=== PATIENT | male | born 1945 | race Caucasian/White ===

== ENCOUNTER → 2016-03-30 | Outpatient (CLI) | payer MEDICARE ==
[2016-03-30 14:30] LABS: Calcium 10.1 mg/dL (8.4-10.2); Potassium 5.8 mmol/L (3.5-5.1)
== END | disposition home or self-care (01) ==
LOC: LABWHC1 12:31
PROVIDERS: ATTEND Internal Medicine Nephrology
DX: N18.3 Chronic kidney disease, stage 3 (moderate) (principal)
CPT/HCPCS: 36415; 80048

== ENCOUNTER 2016-04-02 09:56 | Day surgery (SDC) | payer MEDICARE ==
[2016-04-02 10:52] LABS: Mean Platelet Volume 7.7
[2016-04-02 10:53] LABS: INR 1.5 (<1.1); Prothrombin Time 14.8 sec (9.0-12.0)
[2016-04-02 11:22] VITALS: RESP 18; TEMP 98.2
[2016-04-02] MEDS: ALBUMIN HUMAN 25% 50 ML in EMPTY BAG 1 BAG IVPB SCH ×2 (12:00→12:23)
[2016-04-02 12:57] VITALS: BP 121/76; PULSE 76
--- NOTE | 2016-04-02 14:45 | US ---
EXAMINATION TYPE: US paracentesis abd w/image DATE OF EXAM: 04/02/2016 12:28 PM COMPARISON: NONE HISTORY: Ascites. PROCEDURE: Maximal barrier technique was utilized. The skin overlying a suitable pocket of fluid was localized with ultrasound and the overlying skin was prepped and draped. Ultrasound was utilized with sterile technique. Lidocaine was used for local anesthesia and a skin alisa made with a scalpel. Catheter was advanced under direct ultrasound guidance into a suitable pocket of fluid and approximately 3.3 liter s of serous fluid were removed. Catheter was withdrawn and hemostasis achieved. There is no immedia te complication; the patient is discharged in stable condition. IMPRESSION: STATUS POST ULTRASOUND GUIDED PARACENTESIS FOR PALLIATION OF ASCITES. THIS PROCEDURE WA S PERFORMED BY THE UNDERSIGNED.
== END 2016-04-02 13:01 | disposition home or self-care (01) ==
LOC: RADPROMAIN 09:56
PROVIDERS: ATTEND Internal Medicine Critical Care Medicine
DX: R18.8 Other ascites (principal); Z88.8 Allergy status to other drugs, medicaments and biological substances
CPT/HCPCS: 82565; 85049; 85610; 96365; 36415; 49083; P9047

== ENCOUNTER 2016-04-09 12:59 | Day surgery (SDC) | payer MEDICARE ==
[2016-04-09 14:12] LABS: Mean Platelet Volume 7.5
[2016-04-09 14:21] VITALS: TEMP 98
[2016-04-09 14:33] LABS: INR 1.5 (<1.1); Prothrombin Time 14.9 sec (9.0-12.0)
[2016-04-09 15:30] VITALS: BP 88/66; PULSE 117; RESP 20
--- NOTE | 2016-04-09 16:15 | US ---
Discontinued paracentesis, limited abdomen ultrasound HISTORY: Ascites Real-time ultrasound shows ascites within the pelvis. Following evaluation of patient's blood pressur e is elected to postpone the procedure. Discussion undertaken with referring clinician. IMPRESSION: Discontinued paracentesis at this time. Ascites.
--- NOTE | 2016-04-09 16:20 | US ---
EXAMINATION TYPE: US guide needle placement DATE OF EXAM: 04/09/2016 1:55 PM HISTORY: Needs IV access for hypotension therapy. PROCEDURE: Maximal barrier technique utilized. The skin overlying the basilic vein was localized with ultrasoun d and the vein was noted to be compressible and patent by ultrasound and ultrasound image was obtaine d and submitted on patient's chart. Under direct ultrasound guidance a 20-gauge Angiocath was advanc ed into the vein and fixed in place. Catheter was aspirated and flushed with sterile saline. Hemost asis achieved. Catheter fixed in place. No immediate complication. IMPRESSION: Ultrasound-guided venipuncture, this procedure performed by the undersigned.
== END 2016-04-09 15:30 | disposition home or self-care (01) ==
LOC: RADPROMAIN 12:59
PROVIDERS: ATTEND Internal Medicine Critical Care Medicine
DX: R18.8 Other ascites (principal); R06.02 Shortness of breath; I95.9 Hypotension, unspecified; Z53.8 Procedure and treatment not carried out for other reasons
CPT/HCPCS: 36415; 76705; 76942; 82565; 85049; 85610

== ENCOUNTER → 2016-04-14 | Outpatient (CLI) | payer MEDICARE ==
[2016-04-14 08:37] LABS: Calcium 9.3 mg/dL (8.4-10.2); Potassium 5.4 mmol/L (3.5-5.1)
== END | disposition home or self-care (01) ==
LOC: LABWHC1 07:43
PROVIDERS: ATTEND Internal Medicine Interventional Cardiology
DX: N18.9 Chronic kidney disease, unspecified (principal)
CPT/HCPCS: 36415; 80048

== ENCOUNTER → 2016-05-10 | Outpatient (CLI) | payer MEDICARE ==
[2016-05-10 11:27] LABS: Calcium 8.1 mg/dL (8.4-10.2); Potassium 4.9 mmol/L (3.5-5.1)
== END | disposition home or self-care (01) ==
LOC: LABWHC1 10:30
PROVIDERS: ATTEND Internal Medicine Nephrology
DX: Z94.0 Kidney transplant status (principal); D64.9 Anemia, unspecified
CPT/HCPCS: 36415; 80048; 80197

== ENCOUNTER → 2016-05-14 | Outpatient (CLI) | payer MEDICARE ==
[2016-05-14 11:09] LABS: Potassium 4.7 mmol/L (3.5-5.1)
== END | disposition home or self-care (01) ==
LOC: LABWHC1 10:19
PROVIDERS: ATTEND Nurse Practitioner Family
DX: N18.4 Chronic kidney disease, stage 4 (severe) (principal)
CPT/HCPCS: 36415; 80048

== ENCOUNTER → 2016-05-19 | Outpatient (CLI) | payer MEDICARE ==
[2016-05-19 11:14] LABS: Calcium 7.8 mg/dL (8.4-10.2); Potassium 5.1 mmol/L (3.5-5.1)
== END | disposition home or self-care (01) ==
LOC: LABWHC1 10:08
PROVIDERS: ATTEND Nurse Practitioner Family
DX: N18.4 Chronic kidney disease, stage 4 (severe) (principal)
CPT/HCPCS: 36415; 80048

== ENCOUNTER → 2016-05-25 | Outpatient (CLI) | payer MEDICARE ==
[2016-05-25 11:48] LABS: CH 32.3; CHCM 32.4; HCT 29.6 % (39.0-53.0); HDW 3.32; HGB 9.8 gm/dL (13.0-17.5); Hypochromasia Slight; MCH 33.3 pg (25.0-35.0); MCHC 33.1 g/dL (31.0-37.0); MCV 100.7 fL (80.0-100.0); Macrocytosis Slight; Mean Platelet Volume 8.4; RBC 2.94 m/uL (4.30-5.90); RDW 15.4 % (11.5-15.5); WBC 8.3 k/uL (3.8-10.6)
[2016-05-25 12:04] LABS: Calcium 7.3 mg/dL (8.4-10.2); Potassium 5.1 mmol/L (3.5-5.1)
[2016-05-25 12:13] LABS: % Iron Saturation 18.9 % (20-50)
== END | disposition home or self-care (01) ==
LOC: LABWHC1 11:20
PROVIDERS: ATTEND Nurse Practitioner Family
DX: N18.4 Chronic kidney disease, stage 4 (severe) (principal)
CPT/HCPCS: 36415; 80048; 80197; 82728; 83540; 83550; 83970; 85027

== ENCOUNTER 2016-06-11 13:13 | Day surgery (SDC) | payer MEDICARE ==
[2016-06-11 13:45] LABS: Mean Platelet Volume 7.7
[2016-06-11 13:56] LABS: INR 1.6 (<1.1); Prothrombin Time 15.9 sec (9.0-12.0)
[2016-06-11 14:15] VITALS: RESP 20; TEMP 97.5
[2016-06-11 14:52] VITALS: BP 122/61; PULSE 67
--- NOTE | 2016-06-11 15:03 | US ---
EXAMINATION TYPE: US paracentesis abd w/image DATE OF EXAM: 06/11/2016 2:51 PM COMPARISON: NONE HISTORY: Ascites. PROCEDURE: Maximal barrier technique was utilized. The skin overlying a suitable pocket of fluid was localized with ultrasound and the overlying skin was prepped and draped. Ultrasound was utilized with sterile technique. Lidocaine was used for local anesthesia and a skin alisa made with a scalpel. Catheter was advanced under direct ultrasound guidance into a suitable pocket of fluid and approximately 1.75 lite rs of serous fluid were removed. Catheter was withdrawn and hemostasis achieved. There is no immedi ate complication; the patient is discharged in stable condition. IMPRESSION: STATUS POST ULTRASOUND GUIDED PARACENTESIS FOR PALLIATION OF ASCITES. THIS PROCEDURE WA S PERFORMED BY THE UNDERSIGNED.
== END 2016-06-11 15:02 | disposition home or self-care (01) ==
LOC: RADPROMAIN 13:13
PROVIDERS: ATTEND Internal Medicine Critical Care Medicine
DX: R18.8 Other ascites (principal); Z88.8 Allergy status to other drugs, medicaments and biological substances
CPT/HCPCS: 49083; 85049; 85610

== ENCOUNTER → 2016-06-21 | Outpatient (CLI) | payer MEDICARE ==
[2016-06-21 10:21] LABS: CH 31.7; HDW 3.24; HGB 8.9 gm/dL (13.0-17.5); Hypochromasia Moderate; MCH 31.4 pg (25.0-35.0); MCHC 30.5 g/dL (31.0-37.0); Macrocytosis Slight; Mean Platelet Volume 7.3; RBC 2.82 m/uL (4.30-5.90); RDW 14.8 % (11.5-15.5); WBC 7.1 k/uL (3.8-10.6)
== END | disposition home or self-care (01) ==
LOC: LABWHC1 09:30
PROVIDERS: ATTEND Nurse Practitioner Family
DX: N18.4 Chronic kidney disease, stage 4 (severe) (principal)
CPT/HCPCS: 36415; 80197; 82306; 82728; 83540; 83550; 83970; 85027

== ENCOUNTER → 2016-07-28 | Outpatient (CLI) | payer MEDICARE ==
[2016-07-28 11:21] LABS: CH 31.3; CHCM 30.7; HCT 32.3 % (39.0-53.0); HGB 9.6 gm/dL (13.0-17.5); Hypochromasia Marked; MCH 30.6 pg (25.0-35.0); MCHC 29.8 g/dL (31.0-37.0); MCV 102.4 fL (80.0-100.0); Macrocytosis Slight; Mean Platelet Volume 7.3; RBC 3.15 m/uL (4.30-5.90); RDW 14.2 % (11.5-15.5); WBC 7.4 k/uL (3.8-10.6)
[2016-07-28 11:37] LABS: Creatinine,Urine Random 83.8 mg/dL
[2016-07-28 11:44] LABS: Calcium 7.9 mg/dL (8.4-10.2); Potassium 4.9 mmol/L (3.5-5.1)
[2016-07-28 12:24] LABS: Hemoglobin A1C 5.2 % (4.2-6.1)
[2016-07-28 13:54] LABS: % Iron Saturation 13.6 % (20-50)
== END | disposition home or self-care (01) ==
LOC: LABWHC1 10:17
PROVIDERS: ATTEND Nurse Practitioner Family
DX: N18.3 Chronic kidney disease, stage 3 (moderate) (principal); E21.3 Hyperparathyroidism, unspecified; D64.9 Anemia, unspecified; E55.9 Vitamin D deficiency, unspecified; R80.9 Proteinuria, unspecified; Z94.0 Kidney transplant status
CPT/HCPCS: 36415; 80048; 80061; 80197; 82306; 82570; 82728; 83036; 83540; 83550; 83970; 84156; 85027

== ENCOUNTER 2016-09-01 12:31 | Day surgery (SDC) | payer MEDICARE ==
[2016-09-01 13:03] LABS: Mean Platelet Volume 8.5
[2016-09-01 13:08] LABS: INR 1.5 (<1.1); Prothrombin Time 14.4 sec (9.0-12.0)
[2016-09-01 13:58] VITALS: TEMP 97.5
[2016-09-01 15:10] VITALS: RESP 18
[2016-09-01 15:13] VITALS: BP 109/64; PULSE 56
--- NOTE | 2016-09-01 15:19 | US ---
EXAMINATION TYPE: US paracentesis abd w/image DATE OF EXAM: 09/01/2016 CLINICAL HISTORY: Ascites The procedure was discussed with the patient. The risks, complications, benefits, and alternatives we re discussed and any questions were answered. Informed consent was obtained. The patient was placed s upine on the ultrasound table and prepped and draped in the usual sterile fashion. All elements of maximal barrier technique were utilized. Under ultrasound guidance, access into the right lower quadrant was obtained, via the paracentesis catheter system and direct ultrasound guidanc e. Approximately 3.1 liters of straw-colored fluid was removed. The patient was stable throughout the pr ocedure and remained stable upon discharge from Department of Radiology. IMPRESSION: Successful therapeutic paracentesis under ultrasound guidance.
== END 2016-09-01 15:00 | disposition home or self-care (01) ==
LOC: RADPROMAIN 12:31
PROVIDERS: ATTEND Internal Medicine Critical Care Medicine
DX: R18.8 Other ascites (principal); R06.02 Shortness of breath
CPT/HCPCS: 36415; 49083; 85049; 85610

== ENCOUNTER 2016-09-27 10:00 | Day surgery (SDC) | payer MEDICARE ==
[2016-09-27 10:58] LABS: INR 1.5 (<1.1); Prothrombin Time 14.2 sec (9.0-12.0)
[2016-09-27 11:29] VITALS: RESP 18; TEMP 97.6
[2016-09-27 13:11] VITALS: PULSE 66
[2016-09-27 13:21] VITALS: BP 110/67
--- NOTE | 2016-09-27 13:27 | US ---
EXAMINATION TYPE: US paracentesis abd w/image DATE OF EXAM: 09/27/2016 COMPARISON: NONE HISTORY: Ascites. PROCEDURE: Maximal barrier technique was utilized. The skin overlying a suitable pocket of fluid was localized with ultrasound and the overlying skin was prepped and draped. Ultrasound was utilized with sterile technique. Lidocaine was used for local anesthesia and a skin alisa made with a scalpel. Catheter was advanced under direct ultrasound guidance into a suitable pocket of fluid and approximately 3.9 liter s of serous sanguinous fluid were removed. Catheter was withdrawn and hemostasis achieved. There is no immediate complication; the patient is discharged in stable condition. IMPRESSION: STATUS POST ULTRASOUND GUIDED PARACENTESIS FOR PALLIATION OF ASCITES. THIS PROCEDURE WA S PERFORMED BY THE UNDERSIGNED.
== END 2016-09-27 13:10 | disposition home or self-care (01) ==
LOC: RADPROMAIN 10:00
PROVIDERS: ATTEND Internal Medicine Critical Care Medicine
DX: R18.8 Other ascites (principal); Z88.8 Allergy status to other drugs, medicaments and biological substances
CPT/HCPCS: 36415; 49083; 85049; 85610

== ENCOUNTER 2016-10-14 12:31 | Day surgery (SDC) | payer MEDICARE ==
[2016-10-14 13:19] VITALS: TEMP 97.9
[2016-10-14 13:21] LABS: Mean Platelet Volume 7.6
[2016-10-14 13:22] LABS: INR 1.5 (<1.2)
[2016-10-14 13:23] LABS: Prothrombin Time 14.7 sec (9.0-12.0)
[2016-10-14 13:58] VITALS: RESP 14
[2016-10-14 14:49] VITALS: BP 92/66; PULSE 116
--- NOTE | 2016-10-14 15:01 | US ---
EXAMINATION TYPE: US paracentesis abd w/image DATE OF EXAM: 10/14/2016 COMPARISON: NONE HISTORY: Ascites. PROCEDURE: Maximal barrier technique was utilized. The skin overlying a suitable pocket of fluid was localized with ultrasound and the overlying skin was prepped and draped. Ultrasound was utilized with sterile technique. Lidocaine was used for local anesthesia and a skin alisa made with a scalpel. Catheter was advanced under direct ultrasound guidance into a suitable pocket of fluid and approximately 4.3 liter s of serous fluid were removed. Catheter was withdrawn and hemostasis achieved. There is no immedia te complication; the patient is discharged in stable condition. IMPRESSION: STATUS POST ULTRASOUND GUIDED PARACENTESIS FOR PALLIATION OF ASCITES. THIS PROCEDURE WA S PERFORMED BY THE UNDERSIGNED.
== END 2016-10-14 15:03 | disposition home or self-care (01) ==
LOC: RADPROMAIN 12:31
PROVIDERS: ATTEND Internal Medicine Critical Care Medicine
DX: R18.8 Other ascites (principal); Z88.8 Allergy status to other drugs, medicaments and biological substances
CPT/HCPCS: 49083; 85049; 85610

== ENCOUNTER 2016-10-25 12:00 | Day surgery (SDC) | payer MEDICARE ==
[2016-10-25 13:35] VITALS: TEMP 97.6
[2016-10-25 14:09] LABS: Mean Platelet Volume 8.4
[2016-10-25 14:13] LABS: INR 1.5 (<1.2); Prothrombin Time 14.3 sec (9.0-12.0)
[2016-10-25 16:13] VITALS: BP 92/65; PULSE 98; RESP 18
--- NOTE | 2016-10-25 16:59 | US ---
EXAMINATION TYPE: US paracentesis abd w/image DATE OF EXAM: 10/25/2016 COMPARISON: NONE HISTORY: Ascites. PROCEDURE: Maximal barrier technique was utilized. The skin overlying a suitable pocket of fluid was localized with ultrasound and the overlying skin was prepped and draped. Ultrasound was utilized with sterile technique. Lidocaine was used for local anesthesia and a skin alisa made with a scalpel. Catheter was advanced under direct ultrasound guidance into a suitable pocket of fluid and approximately 3.5 liter s of serous fluid were removed. Catheter was withdrawn and hemostasis achieved. There is no immedia te complication; the patient is discharged in stable condition. IMPRESSION: STATUS POST ULTRASOUND GUIDED PARACENTESIS FOR PALLIATION OF ASCITES. THIS PROCEDURE WA S PERFORMED BY THE UNDERSIGNED.
== END 2016-10-25 16:05 | disposition home or self-care (01) ==
LOC: RADPROMAIN 12:00
PROVIDERS: ATTEND Internal Medicine Critical Care Medicine
DX: R18.8 Other ascites (principal); R06.02 Shortness of breath
CPT/HCPCS: 36415; 49083; 85049; 85610

== ENCOUNTER 2016-10-29 11:52 | Day surgery (SDC) | payer MEDICARE ==
[2016-10-29 14:19] VITALS: BP 96/61; PULSE 102; RESP 20; TEMP 97.8
--- NOTE | 2016-10-29 15:28 | US ---
Discontinued thoracentesis HISTORY: Pleural effusion Correlation to plain film 10/27/2016 Real-time sonography shows organized effusion. No free fluid evident. impression: Discontinued thoracentesis. Organized pleural effusion.
== END 2016-10-29 13:00 | disposition home or self-care (01) ==
LOC: RADPROMAIN 11:52
PROVIDERS: ATTEND Internal Medicine Critical Care Medicine
DX: J90 Pleural effusion, not elsewhere classified (principal); Z53.8 Procedure and treatment not carried out for other reasons
CPT/HCPCS: 76604

== ENCOUNTER 2016-11-05 11:58 | Day surgery (SDC) | payer MEDICARE ==
[2016-11-05 12:44] VITALS: RESP 14; TEMP 97.8
[2016-11-05 12:50] LABS: Mean Platelet Volume 7.3
[2016-11-05 13:24] LABS: INR 1.5 (<1.2); Prothrombin Time 14.7 sec (9.0-12.0)
[2016-11-05 14:44] VITALS: BP 90/67; PULSE 123
--- NOTE | 2016-11-05 14:53 | US ---
EXAMINATION TYPE: US paracentesis abd w/image DATE OF EXAM: 11/05/2016 COMPARISON: NONE HISTORY: Ascites. PROCEDURE: Maximal barrier technique was utilized. The skin overlying a suitable pocket of fluid was localized with ultrasound and the overlying skin was prepped and draped. Ultrasound was utilized with sterile technique. Lidocaine was used for local anesthesia and a skin alisa made with a scalpel. Catheter was advanced under direct ultrasound guidance into a suitable pocket of fluid and approximately 4.4 liter s of serous fluid were removed. Catheter was withdrawn and hemostasis achieved. There is no immedia te complication; the patient is discharged in stable condition. IMPRESSION: STATUS POST ULTRASOUND GUIDED PARACENTESIS FOR PALLIATION OF ASCITES. THIS PROCEDURE WA S PERFORMED BY THE UNDERSIGNED.
== END 2016-11-05 15:06 | disposition home or self-care (01) ==
LOC: RADPROMAIN 11:58
PROVIDERS: ATTEND Internal Medicine Critical Care Medicine
DX: R18.8 Other ascites (principal); R06.02 Shortness of breath
CPT/HCPCS: 49083; 85049; 85610

== ENCOUNTER 2016-11-15 11:49 | Day surgery (SDC) | payer MEDICARE ==
[2016-11-15 12:21] VITALS: TEMP 97.7
[2016-11-15 12:32] LABS: Mean Platelet Volume 8.2
[2016-11-15 12:45] LABS: INR 1.4 (<1.2); Prothrombin Time 13.6 sec (9.0-12.0)
[2016-11-15 13:49] VITALS: RESP 18
--- NOTE | 2016-11-15 14:55 | US ---
Therapeutic paracentesis. DATE OF EXAM: 11/15/2016 CLINICAL HISTORY: Ascites The procedure was discussed with the patient. The risks, complications, benefits, and alternatives we re discussed and any questions were answered. Informed consent was obtained. The patient was placed s upine on the ultrasound table and prepped and draped in the usual sterile fashion. All elements of maximal barrier technique were utilized. Under ultrasound guidance, access into the left lower quadrant was obtained, via the paracentesis catheter system and direct ultrasound guidance . Approximately 3.7 liters of straw-colored fluid was removed. The patient was stable throughout the pr ocedure and remained stable upon discharge from Department of Radiology. IMPRESSION: Successful therapeutic paracentesis under ultrasound guidance.
[2016-11-15 15:34] VITALS: BP 92/66; PULSE 118
== END 2016-11-15 14:40 | disposition home or self-care (01) ==
LOC: RADPROMAIN 11:49
PROVIDERS: ATTEND Internal Medicine Critical Care Medicine
DX: R18.8 Other ascites (principal); R06.02 Shortness of breath
CPT/HCPCS: 36415; 49083; 85049; 85610